=== PATIENT | female | born 1980 | race Caucasian/White ===

== ENCOUNTER 2018-04-20 12:23 | Day surgery (SDC) | payer BC ==
[2018-04-20] MEDS ORDERED: LIDOCAINE 2% (SDV) 5 ML INJ (14:47)
[2018-04-20] MEDS ORDERED: PROPOFOL 60 ML (14:47)
[2018-04-20] MEDS ORDERED: EPHEDrine SULFATE 50 MG/5 ML SYG IV (15:30)
[2018-04-20] MEDS ORDERED: FENTAnyl 50 MCG/ML VIAL IV (15:30)
[2018-04-20] MEDS ORDERED: ATROPINE 1 MG/10 ML SYRINGE IV (15:30)
[2018-04-20] MEDS ORDERED: METOCLOPRAMIDE 10 MG INJ IV (15:30)
[2018-04-20] MEDS ORDERED: ONDANSETRON 4 MG INJ IV (15:30)
== END 2018-04-20 16:40 | disposition home or self-care (01) ==
LOC: GIL 12:23
DX: K21.0 Gastro-esophageal reflux disease with esophagitis (principal); K64.9 Unspecified hemorrhoids; K29.70 Gastritis, unspecified, without bleeding
CPT/HCPCS: 43239; 84703; 88305; 88312; 88313